=== PATIENT | male | born 1975 | race Caucasian/White ===

== ENCOUNTER 2017-09-16 11:30 | Emergency (ER) | payer OTHER, SELFPAY ==
--- NOTE | 2017-09-16 11:51 | DI.RAD.S_ITS ---
PROCEDURE: XR KNEE LT 3V INDICATIONS: swelling TECHNIQUE: 3 views of the knee were acquired. COMPARISON: None. FINDINGS: Bones: Knee arthroplasty has been performed. No fractures or dislocations. No suspicious bony lesions. Soft tissues: Large joint effusion. No suspicious soft tissue calcifications. IMPRESSION: 1. Large knee joint effusion. 2. Knee arthroplasty Dictated by: Nuha Gamez M.D. on 09/16/2017 at 12:25 Approved by: Nuha Gamez M.D. on 09/16/2017 at 12:25
[2017-09-16 12:00] VITALS: BP 171/113; PULSE 110; RESP 20; TEMP 36.8; O2SAT 93
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
[2017-09-16] MEDS: KETOROLAC 60 MG/2 ML VIAL IM (13:35)
[2017-09-16] MEDS: OXYCODONE/ACETAMINOPHEN 5/325 TABLET 2 TAB PO (13:35)
[2017-09-16 14:00] VITALS: BP 155/112; PULSE 78; RESP 17
--- NOTE | 2017-09-16 14:08 | PC.NURSE ---
Pt. has had no decrease of pain at discharge but medications hadn't much chance to work.
[2017-09-16 14:10] VITALS: BP 155/112; PULSE 78; TEMP 36.2; O2SAT 99
== END 2017-09-16 14:00 | disposition home or self-care (01) ==
PROVIDERS: Emergency Provider Nurse Practitioner Family; PCP Internal Medicine
DX: S83.92XA Sprain of unspecified site of left knee, initial encounter (principal); V86.56XA Driver of dirt bike or motor/cross bike injured in nontraffic accident, initial encounter
CPT/HCPCS: 73562; 99283; J1885

== ENCOUNTER → 2021-03-07 14:34 | Outpatient (CLI) | payer OTHER, SELFPAY ==
[2021-03-07 17:47] LABS: COVID19 -Nasal RAPID Negative (Negative)
== END ==
PROVIDERS: PCP Internal Medicine; Visit Provider Nurse Practitioner Family
DX: Z20.822 Contact with and (suspected) exposure to COVID-19 (principal)
CPT/HCPCS: 87635

== ENCOUNTER 2021-03-09 14:38 | Day surgery (SDC) | payer OTHER, SELFPAY ==
[2021-03-09] VITALS (9 sets, daily range): BP systolic 110–130; BP diastolic 56–88; PULSE 67–125; RESP 14–18; TEMP 36.2–36.6; O2SAT 97–100; BMI 23.6
--- NOTE | 2021-03-09 | PATH_ITS ---
[facility] Accession Number: [id number] . 01 Material submitted: . gastrointestinal site - GASTRIC . 01 Clinical history: . A: R/O H. PYLORI . 02 Diagnosis: Stomach, Biopsy: Body-type mucosa with mild chronic gastritis. Negative for Helicobacter by immunohistochemistry. Negative for intestinal metaplasia. Negative for dysplasia and malignancy. [facility] 03/14/2021 1330 Local . 02 Electronically signed: . Janna Santos MD, Pathologist NPI- [id number] . 01 Gross description: . GASTRIC: Received in formalin are 2 fragment(s) of vogel, soft tissue measuring 0.3 x 0.3 x 0.3 cm to 0.3 x 0.3 x 0.2 cm submitted entirely in 1 cassette(s) /[facility] 03/10/2021 0840 Local . 02 Microscopic: . An immunohistochemical stain was performed to evaluate for Helicobacter organisms and is negative. The control stain showed appropriate reactivity. . * This test was developed and its performance characteristics determined by [facility]. It has not been cleared or approved by the U.S. Food and Drug Administration. The FDA has determined that such clearance or approval is not necessary. This test is used for clinical purposes. It should not be regarded as investigational or for research. . 02 Pathologist provided ICD-10: K92.1 . 02 CPT . 242375, [id number] Performed at: 01 [facility] [address] [facility] [address], [place], [place] [id number] MD Raza Li MD Phone: [phone] Performed at: 02 [facility] [id number] [place], [place] [id number] MD Janna Santos MD Phone: [phone]
[2021-03-09] MEDS: SODIUM CHLORIDE 0.9% 1,000 ML 84 ML IV (14:57)
--- NOTE | 2021-03-09 15:03 | PM.HP.1 ---
History of Present Illness History of Present Illness Date Patient Seen: 03/09/21 Chief complaint: SDC Narrative: Melena and epigastric pain Patient History Medical History (Updated 10/01/17 @ 00:00 by ) Hypertension Rheumatoid arthritis Surgical History (Updated 09/16/17 @ 12:52 by MIKI Santillan) Status post bilateral knee replacements Family & Social History Social History: household members spouse Tobacco & Substance use: Smoking Status Never smoker alcohol intake current alcohol intake frequency 0-2 drinks per day Substance Use Type does not use Meds Home Medications and Allergies Home Medications Medication Instructions Recorded Confirmed Type FLUTICASONE 50MCG JILL INH- 0 INH * UK DOSE/FREQUENCY #0 12/15/07 History (FLUTICASONE PROPIONATE) adalimumab 40 mg/0.8 mL 40 mg SUBCUT DIRECTED 03/08/21 03/09/21 History subcutaneous syringe kit (Humira) losartan 100 100 tab PO DAILY 03/08/21 03/09/21 History mg-hydrochlorothiazide 25 mg tablet Allergies Allergy/AdvReac Type Severity Reaction Status Date / Time No Known Drug Allergies Allergy Verified 09/16/17 11:50 Exam Vital Signs (past 8 hours): - 03/09/21 14:50 Temperature 97.2 F L Pulse Rate 125 H Respiratory Rate 18 Blood Pressure 120/83 Pulse Oximetry 100 Oxygen Delivery Method Room Air Narrative Exam Narrative: Oropharynx free of lesions Chest clear to auscultation percussion Cardiac exam reveals no S3 or murmur Assessment & Plan Assessment & Plan narrative: Melena and epigastric pain rule out peptic disease. Risks, benefits, alternatives have been explained. Time Spent With Patient Critical Care time: I spent a total of [] minutes of critical care time on this patient's care today; this time is exclusive of procedural time.
--- NOTE | 2021-03-09 15:04 | PM.OP.EGD ---
Operative Date/Time/Diagnoses Date of procedure: 03/09/21 Pre-op diagnosis: See indication and findings Procedure & Clinicians Study performed: EGD Indications: Melena and epigastric pain Surgeon: Jose Stark Procedure Notes Procedure in detail: After informed consent was obtained the patient was placed in left lateral decubitus position. The video upper scope was placed into the oropharynx with the patient's help swelled into the esophagus. The esophagus stomach and duodenum were carefully examined. On withdrawal, retroflexed view the GE junction was performed. The scope was removed. The patient tolerated procedure well. Blood loss none Complications none Sedation mac Findings 1. Scattered mucosal white patches throughout the mid to distal esophagus consistent with Alva esophagitis. 2. Completely normal squamocolumnar junction no evidence for peptic esophagitis 3. Most of the stomach rather beefy red. Biopsies taken to rule out Helicobacter. There was more bright streaky erythema in the antrum however. 4. Shallow erosions/healing ulcer in the duodenal bulb anterior wall. This is approximately 5 mm in size. No stigmata were seen. 5. Mild patchy erythema throughout the duodenal sweep Will go ahead and call in fluconazole along with extending his anti peptic regimen. He can follow up with myself or Dr. Varghese or myself in [place]
[2021-03-09] MEDS: ONDANSETRON 4 MG/2 ML INJ IV (15:43)
--- NOTE | 2021-03-09 15:59 | SUR.PHASEI ---
Pt states relief from nausea after med administration
== END 2021-03-09 16:45 | disposition home or self-care (01) ==
PROVIDERS: PCP Physician Assistant; Referring Provider Internal Medicine Gastroenterology; Visit Provider Internal Medicine Gastroenterology
PROC: 0DJ08ZZ Inspection of Upper Intestinal Tract, Via Natural or Artificial Opening Endoscopic (ICD-10-PCS; CPT 43235; principal; 2021-03-09 15:30)
DX: K29.50 Unspecified chronic gastritis without bleeding (principal); K92.1 Melena; K25.9 Gastric ulcer, unspecified as acute or chronic, without hemorrhage or perforation
CPT/HCPCS: 43239; J2405; J2704

== ENCOUNTER 2021-08-07 23:50 | Emergency (ER) | payer OTHER, SELFPAY ==
[2021-08-07 23:59] VITALS: BP 180/107; PULSE 124; RESP 24; TEMP 36.5; O2SAT 95; BMI 23.6
--- NOTE | 2021-08-08 00:05 | ED_ITS ---
HPI - Back Pain/Injury General Chief Complaint: Back Pain/Injury Stated Complaint: BACK AND RIBS HURTS TO BREATH Time Seen by Provider: 08/07/21 23:57 Source: patient and family Mode of arrival: Wheelchair History of Present Illness HPI Narrative: Patient is a 46-year-old male who is here for evaluation of right-sided back in rib pain. He also states that it hurts quite a bit to take a deep breath. There was no specific injury. He has been putting lidocaine patches over the area. Has been going on for the past 1-2 days. 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 He has never had a kidney stone. Related Data Home Medications Medication Instructions Recorded Confirmed FLUTICASONE 50MCG JILL INH- 0 INH * DOSE/FREQUENCY #0 12/15/07 (FLUTICASONE PROPIONATE) adalimumab 40 mg/0.8 mL 40 mg SUBCUT DIRECTED 03/08/21 03/09/21 subcutaneous syringe kit (Humira) losartan 100 100 tab PO DAILY 03/08/21 03/09/21 mg-hydrochlorothiazide 25 mg tablet Allergies Allergy/AdvReac Type Severity Reaction Status Date / Time No Known Drug Allergies Allergy Verified 09/16/17 11:50 Review of Systems Constitutional Constitutional: Reports system reviewed and no additional complaints, except as documented Cardiovascular Cardiovascular: Reports system reviewed and no additional complaints, except as documented Respiratory Respiratory: Reports system reviewed and no additional complaints, except as documented Gastrointestinal Gastrointestinal: Reports system reviewed and no additional complaints, except as documented Genitourinary Genitourinary: Reports system reviewed and no additional complaints, except as documented Musculoskeletal Musculoskeletal: Reports system reviewed and no additional complaints, except as documented Integumentary/Breasts Skin/Breast: Reports system reviewed and no additional complaints, except as documented Patient History Medical History Hypertension Rheumatoid arthritis Surgical History (Updated 09/16/17 @ 12:52 by MIKI Santillan) Status post bilateral knee replacements Social History household members: spouse Smoking Status: Never smoker alcohol intake: current Smoking Status: Never smoker alcohol intake frequency: 0-2 drinks per day Substance Use Type: does not use Exam Initial Vital Signs Initial Vital Signs: Vital Signs Temperature 97.7 F 08/07/21 23:59 Pulse Rate 124 H 08/07/21 23:59 Respiratory Rate 24 08/07/21 23:59 Blood Pressure 180/107 H 08/07/21 23:59 Pulse Oximetry 95 08/07/21 23:59 HENMT Head: normal to inspection and normocephalic Resp Effort & Inspection: normal respiratory effort Auscultation: clear to auscultation bilaterally Cardio Rate: regular rate Back/Spine/Pelvis Thoracic/Lumbar Spine: paraspinal tenderness (Right-sided thoracolumbar muscle tenderness.) Skin General: no rashes or lesions noted Course Orders Ordered: Discontinued Medications Cyclobenzaprine HCl (Cyclobenzaprine 10 Mg Tablet) 10 mg PO NOW ONE Stop: 08/08/21 00:06 Last Admin: 08/08/21 00:09 Dose: 10 mg Documented by: MULUGETA Ketorolac Tromethamine (Ketorolac 30 Mg/Ml Vial) 30 mg IM NOW ONE Stop: 08/08/21 00:02 Last Admin: 08/08/21 00:06 Dose: 30 mg Documented by: MULUGETA Vital Signs Vital signs: Vital Signs - 8 hr 08/07/21 23:59 Temperature 97.7 F Pulse Rate 124 H Respiratory Rate 24 Blood Pressure 180/107 H Pulse Oximetry 95 MDM - Back Pain/Injury MDM Narrative Medical decision making narrative: She does have improvement of symptoms after medications provided above. This is clearly a muscular issue. No skin changes over the area that would make me concern for zoster. I have low suspicion for kidney stones as the pain is reproducible with palpation. Discharge home with symptom control. He was given return precautions follow-up instructions. He expressed understanding and agreement. Discharge Plan Departure Patient Disposition: Home Clinical Impression: Back strain Instructions: DI for Muscle Strain Activity Restrictions/Additional Instructions: You can continue to use the lidocaine patches if they are helping. I also recommend heat and ice and stretching. You can also continue with anti- inflammatories such as Motrin or Naprosyn. Use the medications you were given here in the emergency department as needed and as directed. Return to the emergency department for any new or worsening symptoms. Prescriptions: No Action FLUTICASONE 50MCG JILL INH- (FLUTICASONE PROPIONATE) 0 INH * UK DOSE/FREQUENCY Qty: 0 0RF losartan-hydrochlorothiazide 100-25 mg tablet 100 tab PO DAILY 0RF Humira 40 mg/0.8 mL syringe kit 40 mg SUBCUT DIRECTED 0RF Referrals: Sakshi Toscano [Primary Care Provider] -
[2021-08-08] MEDS: KETOROLAC 30 MG/ML VIAL IM (00:06)
[2021-08-08] MEDS: CYCLOBENZAPRINE 10 MG TABLET PO (00:09)
--- NOTE | 2021-08-08 01:01 | PC.NURSE ---
Pt reports his pain is now a 3/10 when lying still, 6/[address] Freeman notified.
[2021-08-08] MEDS: HYDROCODONE/ACET 5/325 PREPACK 1 BOTTLE MISC (01:11)
[2021-08-08] MEDS: CYCLOBENZAPRINE 10 MG PREPACK 1 BOTTLE MISC (01:11)
[2021-08-08 01:21] VITALS: BP 140/91; PULSE 95; RESP 18; O2SAT 95
== END 2021-08-08 01:22 | disposition home or self-care (01) ==
PROVIDERS: Emergency Provider Emergency Medicine; PCP Physician Assistant
DX: S39.012A Strain of muscle, fascia and tendon of lower back, initial encounter (principal)
CPT/HCPCS: 96372; 99283; J1885